=== PATIENT | male | born 1955 | race Caucasian/White ===

== ENCOUNTER 2025-05-23 18:34 | Emergency (ER) | payer MEDICARE ==
[~2025-05-23] VITALS: Ht 180.3 cm; Wt 104.3 kg
[~2025-05-23 18:34] MED LIST: AMOX1TAB16 PO; FLUT16H NS; LORA10TA7 PO
--- NOTE | 2025-05-23 19:03 | ERN ---
ED Note History of Present Illness Stated Complaint: N/V Chief Complaint: Nausea,Vomiting,Diarrhea Time Seen by MD: 18:44 Time Seen by Midlevel: 18:45 Dictation: A 70-YEAR-OLD MALE HERE WITH MULTIPLE COMPLAINTS HIS ACUTE COMPLAINT IS THAT 7-8 HOURS PRIOR TO ARRIVAL HE STARTED HAVING NAUSEA VOMITING AND WAS UNABLE TO KEEP ANY FOOD OR FLUIDS DOWN. HE STATES HE IS HAVING SOME LEFT LATERAL FLANK PAIN. HE DENIES FEVER CHILLS. SECOND COMPLAINT IS HE HAS HAD DIZZINESS OFF AND ON FOR SEVERAL MONTHS IN HIS TOLD HIS PRIMARY CARE DOCTOR AT [facility] AND THEY HAVE NEVER TREATED IT. COMPLAINT IS HE HAS A LEFT HIP REPLACEMENT THAT WAS DONE TWO YEARS AGO IN [place] HE HAS BEEN HAVING PAIN TO THE HIP SINCE. SAID HE HAS SPOKEN TO HIS DOCTOR AT [facility] REGARDING THIS AND NOTHING WAS EVER DONE FOR THIS. HE IS ALERT AND ORIENTED X4 SPEECH IS CLEAR. NIH IS 0 ON APPROACH DENIES ANY NAUSEA AT THIS TIME. Allergies: Coded Allergies: No Known Allergies (Unverified Allergy, Unknown, 01/08/25) Emergency Care READING TUTOR: None Home Meds Active Scripts Loratadine (Loratadine) 10 Mg Tablet, 1 TAB PO DAILY for allergy symptoms for 30 Days, #30 TAB 0 Refills Prov:MAREK ROSAS MD 01/08/25 Fluticasone Propionate (Flonase Nasal [place]) 50 Mcg/Actuation [place], 2 SPRAY NS DAILY, #16 GM 0 Refills Prov:MAREK ROSAS MD 01/08/25 Amoxicillin/Potassium Clav (Amox Tr-K Clv 875-125 mg Tab) 875 Mg-125 Mg Tablet, 1 TAB PO BID for 10 Days, #20 TAB 0 Refills Prov:MAREK ROSAS MD 01/08/25 Past Medical History Past Medical History: Hypothyroid Surgical History: Other Surgical History Other: SINUS SX, LT HIP SX, RT KNEE SX RN Note Reviewed/Agreed w/PFSH: Yes Review of System Dictation CONSTITUTIONAL: NEGATIVE EXCEPT FOR HPI HEAD/FACE: NEGATIVE EXCEPT FOR HPI EENT: NEGATIVE EXCEPT FOR HPI RESPIRATORY: NEGATIVE EXCEPT FOR HPI GASTROINTESTINAL/ABDOMINAL: NEGATIVE EXCEPT FOR HPI NAUSEA VOMITING WITH LEFT FLANK PAIN GENITOURINARY: NEGATIVE EXCEPT FOR HPI MUSCULOSKELETAL: NEGATIVE EXCEPT FOR HPI CHRONIC LEFT HIP PAIN INTEGUMENTARY: NEGATIVE EXCEPT FOR HPI NEUROLOGICAL/PSYCH: NEGATIVE EXCEPT FOR HPI DIZZINESS HEMATOLOGIC/LYMPHATIC: NEGATIVE EXCEPT FOR HPI ALL SYSTEMS NEGATIVE, EXCEPT NOTED ABOVE. 13 POINT REVIEW OF SYSTEMS ASSESSED AND ALL NEGATIVE EXCEPT FOR ABOVE. Initial Vital Sign VS Vital Signs Date Time Temp Pulse Resp B/P (MAP) Pulse Ox O2 Delivery O2 Flow Rate FiO2 05/23/25 18:36 99.0 62 18 156/57 97 05/23/25 22:49 Room Air* 0 21 Physical Exam Dictation VITAL SIGNS REVIEWED GENERAL APPEARANCE: ALERT, ORIENTED X 3, NO ACUTE DISTRESS, WELL DEVELOPED, NOURISHED. HEAD AND FACE: NON-TRAUMATIC. EYES: PERRL, PINK CONJUNCTIVAS, EYELID NO TRAUMA, LEFT HORIZONTAL NYSTAGMUS EARS: PINNAS INTACT AND NO SIGNS OF TRAUMA OR ERYTHEMA EAR CANALS CLEAR AND NO DISCHARGE TM NO ERYTHEMA BILATERAL TMS INTACT NOSE: NO DISCHARGE, NO BLEEDING. OROPHARYNX: MOUTH NORMAL, TONGUE PINK, PHARYNX CLEAR,NO ERYTHEMA, TONSILS NO EXUDATES, NO ABSCESSES NOTED, MUCOUS MEMBRANE MOIST NECK: SUPPLE, NON-TENDER, NO THYROMEGALY, NO MASSES, NO JVD, NO BRUITS BREAST:DEFERRED CHEST:NO TENDERNESS, NO CREPITUS, NO PARADOXICAL MOVEMENT, NO RETRACTIONS LUNGS:CLEAR, WELL-VENTILATED, SYMMETRIC, NO RALES, NO WHEEZING, NO RHONCHI, NO STRIDOR, GOOD BREATH SOUNDS BILATERALLY HEART: REGULAR RATE, REGULAR RHYTHM, NO MURMUR, NO GALLOPS VASCULAR: NO PERIPHERAL EDEMA, ABDOMEN: SOFT, POSITIVE BOWEL SOUNDS, NONDISTENDED, NO GUARDING, NONTENDER, NO REBOUND, NO MASSES NO HEPATOMEGALY, NO SPLENOMEGALY, NO EVANS'S SIGN, NO HERNIAS. RECTAL: DEFERRED GENITAL: DEFERRED NEUROLOGICAL: NORMAL SPEECH, MOTOR FUNCTION INTACT, SENSORY FUNCTION INTACT NIH IS 0 MUSCULOSKELETAL: NECK NONTENDER, FULL RANGE OF MOTION, BACK NONTENDER, FULL RANGE OF MOTION, EXTREMITIES: NONTENDER, FULL RANGE OF MOTION FOCAL TENDERNESS LEFT HIP SKIN: COLOR PINK, DRY, NO TURGOR, NO RASH, NO LACERATIONS, NO ABRASIONS, NO CONTUSIONS. LYMPHATIC: DEFERRED Results (Laboratory/Radiology) Laboratory/Radiology Laboratory Tests Test 05/23/25 19:09 05/23/25 21:42 White Blood Count 8.6 K/uL (4.8-10.8) Red Blood Count 5.16 MIL/uL (4.50-6.20) Hemoglobin 15.8 g/dL (14.0-18.0) Hematocrit 46.8 % (42-54) Mean Corpuscular Volume 90.7 fL (79-99) Mean Corpuscular Hemoglobin 30.6 pg (27.0-33.0) Mean Corpuscular Hemoglobin Concent 33.8 g/dL (32.0-36.0) Red Cell Distribution Width 13.2 % (11.0-15.5) Platelet Count 206 K/uL (130-400) Mean Platelet Volume 9.2 fL (7.5-10.5) Immature Granulocyte % (Auto) 0.2 % (0-1) Neutrophils (%) (Auto) 79.7 % (40.0-77.0) H Lymphocytes (%) (Auto) 13.4 % (21.0-51.0) L Monocytes (%) (Auto) 6.5 % (3.0-13.0) Eosinophils (%) (Auto) 0.0 % (0.0-8.0) Basophils (%) (Auto) 0.2 % (0.0-5.0) Neutrophils # (Auto) 6.9 K/uL (1.8-7.7) Lymphocytes # (Auto) 1.2 K/uL (1.0-4.8) Monocytes # (Auto) 0.6 K/uL (0.1-1.0) Eosinophils # (Auto) 0.00 K/uL (0.00-0.70) Basophils # (Auto) 0.02 K/uL (0.00-0.20) Absolute Immature Granulocyte (auto 0.02 K/uL (0-1) Nucleated Red Blood Cells 0.0 % (0.0-0.19) Sodium Level 135 mmol/L (136-145) L Potassium Level 3.8 mmol/L (3.5-5.1) Chloride Level 100 mmol/L (101-111) L Carbon Dioxide Level 28 mmol/L (21-32) Blood Urea Nitrogen 18 mg/dL (7-18) Creatinine 0.9 mg/dL (0.5-1.3) Glomerular Filtration Rate Calc 91 mL/min (>90) Random Glucose 119 mg/dL (70-105) H Total Calcium 8.6 mg/dL (8.5-10.1) Troponin I High Sensitivity 15 ng/L (4-75) Lipase 35 U/L (16-77) Urine Color COLORLESS (YELLOW) Urine Appearance CLEAR (CLEAR) Urine pH 6.0 (5.0-8.0) Urine Specific [place] 1.005 (1.001-1.031) Urine Protein NEGATIVE mg/dL (NEGATIVE) Urine Glucose (UA) NEGATIVE mg/dL (NEGATIVE) Urine Ketones 20 mg/dL (NEGATIVE) H Urine Occult Blood +- (TRACE) (NEGATIVE) H Urine Nitrate NEGATIVE (NEGATIVE) Urine Bilirubin NEGATIVE mg/dL (NEGATIVE) Urine Urobilinogen 0.2 mg/dL (0.2-1.0) Urine Leukocyte Esterase NEGATIVE [place]/uL Urine RBC 2-5 /HPF (0-1) H Urine WBC 0-1 /HPF (0-1) Urine Bacteria None /HPF (None Seen) BONES: No acute fracture or aggressive appearing osseous lesion. JOINTS: No dislocation. Left total hip arthroplasty is in near-anatomic alignment with no periprosthetic fracture appreciated. SOFT TISSUES: The soft tissues are unremarkable. IMPRESSION: 1. No acute findings. 2. Left total hip arthroplasty in near-anatomic alignment without periprosthetic fracture. /[place] Labs Reviewed?: Yes EKG Comment: 2205/EKG NORMAL SINUS RHYTHM/HEART RATE 98/AXIS NORMAL/NO ECTOPY ED Course ED Course Orders Procedure Category Date Status Time Cbc With Differential LAB 05/23/25 Complete 18:59 Troponin I High LAB 05/23/25 Complete Sensitivity 18:59 Urinalysis Profile LAB 05/23/25 Complete 18:59 12 Lead Ekg Tracing- EKG 05/23/25 Complete Technical 18:59 0.9%Nacl 1000ml (Ns PHA 05/23/25 Complete 1000ml) 19:00 Lipase LAB 05/23/25 Complete 18:59 Basic Metabolic Panel LAB 05/23/25 Complete 18:59 Methylprednisolone PHA 05/23/25 Complete Succ 125mg (Solu-Medr 19:00 Meclizine Hcl 25 Mg PHA 05/23/25 Complete (Antivert 25 Mg) 19:00 Hip Unilat 2-3vw Left RAD 05/23/25 Resulted 18:59 Current Medications Medications (Trade) Dose Ordered Sig/Rolan Route PRN Reason Start Time Stop Time Status Last Admin Dose Admin Meclizine HCl (ANTIvert 25 mg) 50 mg ONCE ONCE PO 05/23/25 19:00 05/23/25 19:06 DC 05/23/25 22:34 Methylprednisolone Sodium Succinate (Solu-medROL 125MG) 125 mg ONCE ONCE IVP 05/23/25 19:00 05/23/25 19:06 DC 05/23/25 22:34 Sodium Chloride 1,000 ml @ 0 mls/hr ONCE ONCE IV 05/23/25 19:00 05/23/25 19:05 DC 05/23/25 22:34 Vital Signs Date Time Temp Pulse Resp B/P (MAP) Pulse Ox O2 Delivery O2 Flow Rate FiO2 05/23/25 22:49 89 18 144/83 100 Room Air* 0 21 05/23/25 18:36 99.0 62 18 156/57 97 HEART Score Response (Comments) Value History: Low suspicion (0) 0 EKG: Normal 0 Age: > 65yrs (+2) 2 Risk Factors: 1-2 risk factors (+1) 1 Initial Troponin: Normal limit (0) 0 Total 3 Medical Decision Making MDM MDM: Differential diagnosis: Generalized weakness, electrolyte imbalance, extremity pain. Rationale: Tests considered and ordered secondary to shared decision making include: Previous outside records reviewed: Old ER visits. Risk of complication and/or morbidity or mortality of patient management: None Medications-Per medication reconciliation Need for hospitalization: Patient does not meet criteria for hospitalization. Need for emergency major/minor surgery: No There are no social concerns with this patient. Prescription drug management Prescriptions will include symptomatic care Patient's prior external medical records from other ER visits were reviewed by me as indicated. Prior testing and results from previous visits were reviewed. Prior tests were taken into account with medical decision making and resource utilization, independent historian/historians were used to obtain complete medical history. I independently interpreted the test that were performed, results were reviewed by me and considered findings on radiology if ordered. Medical management and examination interpretation discussions were had by me with other qualified healthcare professionals as indicated for the patient's care. DX & DISP Disposition: Discharge Departure Impression: Primary Impression: Nausea & vomiting Condition: Stable Referrals: SELF,REFERRAL (PCP) Time of Disposition: 23:20 TIAGO WHEELERP May 23, 2025 19:03 JARAD AKINS May 23, 2025 23:17
[2025-05-23 19:15] LABS: IMMATURE GRANULOCYTE ABSOLUTE 0.02 K/uL (0-1); NUCLEATED RED BLOOD CELLS 0.0 % (0.0-0.19); PLATELET COUNT (AUTO) 206 K/uL (130-400); RED BLOOD CELL COUNT(AUTO) 5.16 MIL/uL (4.50-6.20); RED CELL DISTRIBUTION WIDTH 13.2 % (11.0-15.5); WHITE BLOOD COUNT (AUTO) 8.6 K/uL (4.8-10.8)
[2025-05-23 19:23] LABS: CREATININE 0.9 mg/dL (0.5-1.3); GLOMERULAR FILTR. RATE CALC 91.0 mL/min (>90); GLUCOSE,RANDOM 119.0 mg/dL (70-105); SODIUM SERUM 135.0 mmol/L (136-145); UREA NITROGEN, BLOOD 18.0 mg/dL (7-18)
--- NOTE | 2025-05-23 21:13 | HMCIMG ---
EXAM: CR right Hip, 2 View. CLINICAL HISTORY: LEFT HIP PAIN/CHRONIC. HISTORY OF HIP REPLACED COMPARISON: None provided. FINDINGS: BONES: No acute fracture or aggressive appearing osseous lesion. JOINTS: No dislocation. Left total hip arthroplasty is in near-anatomic alignment with no periprosthetic fracture appreciated. SOFT TISSUES: The soft tissues are unremarkable. IMPRESSION: 1. No acute findings. 2. Left total hip arthroplasty in near-anatomic alignment without periprosthetic fracture. /[place]
--- NOTE | 2025-05-23 21:44 | NUR ---
UA COLLECTED AND SENT
[2025-05-23 21:54] LABS: APPEARANCE,URINE CLEAR (CLEAR); GLUCOSE, URINE (UA) NEGATIVE (NEGATIVE); LEUKOCYTE ESTERASE ,URINE NEGATIVE Leu/uL (NEGATIVE); NITRATE,URINE NEGATIVE (NEGATIVE); OCCULT BLOOD,URINE +- (TRACE) (NEGATIVE)
[2025-05-23 21:56] LABS: ADD UA MICROSCOPIC YES
--- NOTE | 2025-05-23 22:03 | EKG ---
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
[2025-05-23] MEDS: 0.9%NACL 1000ML 1,000 ML IV ONE (22:34)
[2025-05-24 00:27] VITALS: BP 146/79; PULSE 88; RESP 18; TEMP 98.3; O2SAT 98
== END 2025-05-24 00:26 | disposition home or self-care (01) ==
LOC: EDH 18:34
DX: R11.2 Nausea with vomiting, unspecified (principal); R10.A2 Flank pain, left side; R42 Dizziness and giddiness; M25.552 Pain in left hip; E03.9 Hypothyroidism, unspecified; G89.29 Other chronic pain; Z96.642 Presence of left artificial hip joint
CPT/HCPCS: 99285; 96374; 84484; 83690; 80048; 85025; 81001; 36415; 73502; 93005; J2919; J7030